=== PATIENT | male | born 1990 | race Caucasian/White ===

== ENCOUNTER 2022-08-04 13:07 | Emergency (ER) | payer SELFPAY ==
[~2022-08-04] VITALS: Ht 182.9 cm; Wt 81.6 kg
[2022-08-04 13:50] VITALS: BP 136/85
[2022-08-04] MEDS ORDERED: LIDOCAINE 1% INJ 50 ML MDV IJ ONE ×2 (14:18→14:30)
[2022-08-04] MEDS ORDERED: TDAP [DIPH/PERTUSSIS/TET] 0.5 ML VIAL IM ONE ×2 (14:30→15:03)
--- NOTE | 2022-08-04 15:09 | NUR ---
2 Suture applied by MD on affected site NO active bleeding. Patient discharged to home in stable condition. Written and verbal after care instructions given. Patient verbalizes understanding of instruction.
== END 2022-08-04 15:10 | disposition home or self-care (01) ==
LOC: ER 13:10
DX: S61.511A Laceration without foreign body of right wrist, initial encounter (principal); W26.8XXA Contact with other sharp object(s), not elsewhere classified, initial encounter; Y93.89 Activity, other specified; Y92.89 Other specified places as the place of occurrence of the external cause; Y99.8 Other external cause status
CPT/HCPCS: 99283; 12002; 90471; 90715; J3490; A6403